=== PATIENT | male | born 1945 | race Caucasian/White ===

== ENCOUNTER 2018-07-15 14:39 | Emergency (ER) | payer OTHER ==
[~2018-07-15] VITALS: Ht 170.2 cm; Wt 98.4 kg
[~2018-07-15 14:39] MED LIST: ALBUTEROL0.09 MG/A2; AMIODARONE HCL200 MG PO; ASMANEX HF100 MCG/Ac; CARVEDILOL3.125 M1; CENTRUM1 TA2; COLACE100 MG PO; COMINH INH; COR200 PO; COR3; COR6 PO; ELIQUIS2.5 MG PO; FLO4 PO; FLONASE0.05 MG/Ac NS; GOOD SENSE ASPI81 M3 PO; HYDROCHLOROTH12.5 MG; LAC PO; LANOXIN0.125 MG PO; LEVAQUIN250 MG PO; LISINOPRIL2.5 MG; MORPHINE SULF2 MG/M1 IVP; NAR2I; NORCO1 TA2 PO; PROMETHAZI6.25 MG/5; TYL325 PO; VAN1I IV; VANCOMYCIN750 MG/150 IV; VERAMYST27.5 MCG/1; VOLTAREN75 MG; ZOFI IV; ZORVOLEX18 MG; ZOS3PM IV; ZYPREXA2.5 MG PO; [UNRECOGNIZED DRUG - CODE]; [UNRECOGNIZED DRUG - CODE] IV; [UNRECOGNIZED DRUG - OTHER] INH
[2018-07-15 14:51] VITALS: Ht 170.2 cm; Wt 98.4 kg
[2018-07-15 15:57] LABS: BASOPHIL % 0.2 % (0-2); PLATELET COUNT 160 x10^3mcL (130-400); RED CELL DISTRIBUTION WIDTH 12.9 % (11.5-14.5)
[2018-07-15 16:06] LABS: CALCIUM 9.2 mg/dL (8.5-10.1); CARBON DIOXIDE 31.8 mmol/L (21-32); CHLORIDE SERUM 101 mmol/L (98-107); CREATININE SERUM 1.5 mg/dL (0.7-1.3); GLUCOSE SERUM 132 mg/dL (74-106); POTASSIUM SERUM 4.1 mmol/L (3.5-5.1); SODIUM SERUM 139 mmol/L (136-145)
[2018-07-15 16:13] LABS: ALBUMIN 3.7 g/dL (3.4-5.0); ALKALINE PHOSPHATASE 46 U/L (46-116); ALT/SGPT 23 U/L (16-63); AST/SGOT 21 U/L (15-37); TOTAL PROTEIN, SERUM 7.2 g/dL (6.4-8.2)
[2018-07-15 16:47] LABS: UA SPECIFIC GRAVITY <=1.005 (1.005-1.035); microscopic required? YES; urine erythrocyte 1+ (NEGATIVE)
[2018-07-15 18:57] VITALS: BP 139/79
== END 2018-07-15 18:57 | disposition home or self-care (01) ==
LOC: ED 14:39
PROVIDERS: Emergency Medicine
DX: N39.0 Urinary tract infection, site not specified (principal); J45.909 Unspecified asthma, uncomplicated; J44.9 Chronic obstructive pulmonary disease, unspecified; I10 Essential (primary) hypertension; Z88.8 Allergy status to other drugs, medicaments and biological substances; Z98.890 Other specified postprocedural states
CPT/HCPCS: 36415; J2270